=== PATIENT | male | born 2000 | race Native Hawaiian/Other Pacific Islander ===

== ENCOUNTER 2020-12-23 12:54 | Emergency (ER) | payer SELFPAY ==
[2020-12-23 13:04] VITALS: BP 130/82
--- NOTE | 2020-12-23 13:15 | Emergency Department Report ---
ED General Adult HPI - General Chief complaint: Chest Pain Stated complaint: CP Time Seen by Provider: 12/23/20 13:00 Source: patient Mode of arrival: Ambulatory Limitations: No Limitations - History of Present Illness Initial comments: Patient is a 20-year-old male presents emergency room complaints of substernal chest pain that began a month ago. He describes the pain as intermittent sharp pain. He denies any radiation of the pain. He denies any alleviating or aggravating factors. He states that he can be doing nothing and he will feel the pain. He denies any shortness of breath, pleuritic chest pain, fever, nausea, vomiting, diarrhea, diaphoresis, leg swelling, syncope. He denies any recent travel, sick contacts, recent surgery. Patient denies any past medical history. He states he is a non-smoker. No allergies to medications. He denies any family cardiac history. Severity scale (0 -10): 8 - Related Data Allergies Allergy/AdvReac Type Severity Reaction Status Date / Time No Known Allergies Allergy Unverified 12/23/20 12:59 ED Review of Systems ROS: Stated complaint: CP Other details as noted in HPI Comment: All other systems reviewed and negative ED Physical Exam - General Limitations: No Limitations General appearance: alert, in no apparent distress - Head Head exam: Present: atraumatic, normocephalic - Eye Eye exam: Present: normal appearance - ENT ENT exam: Present: mucous membranes moist - Respiratory Respiratory exam: Present: normal lung sounds bilaterally. Absent: respiratory distress, wheezes, rales, rhonchi, stridor, chest wall tenderness, accessory muscle use, decreased breath sounds, prolonged expiratory - Cardiovascular Cardiovascular Exam: Present: regular rate, normal rhythm, normal heart sounds. Absent: systolic murmur, diastolic murmur, rubs, gallop - Neurological Exam Neurological exam: Present: alert, oriented X3 - Psychiatric Psychiatric exam: Present: normal affect, normal mood - Skin Skin exam: Present: warm, dry, intact ED Course Vital Signs 12/23/20 13:00 Pulse Rate 79 Respiratory 16 Rate Blood Pressure 130/82 [Left] O2 Sat by Pulse 96 Oximetry ED Medical Decision Making - EKG Data EKG shows normal: sinus rhythm, axis, intervals, QRS complexes Rate: normal - EKG Data 12/23/20 13:17 ST elevation from normal early repolarization No STEMI - Radiology Data Radiology results: report reviewed Ordering Physician: FAISAL BROWER Date of Service: 12/23/20 Procedure(s): XR chest routine 2V Accession Number(s): [id number] cc: FAISAL BROWER Fluoro Time In Minutes: XR chest routine 2V INDICATION / CLINICAL INFORMATION: CP. COMPARISON: None available. FINDINGS: SUPPORT DEVICES: None. HEART /PULMONARY VASCULATURE: No significant abnormality. LUNGS / PLEURA: No significant pulmonary or pleural abnormality. No pneumothorax. ADDITIONAL FINDINGS: No significant additional findings. IMPRESSION: 1. No acute findings. Signer Name: Neil Stock MD Signed: 12/23/2020 1:27 PM Workstation Name: [id number] Transcribed By: ANDREY Dictated By: NEIL STOCK MD Electronically Authenticated By: NEIL STOCK MD Signed Date/Time: 12/23/201326 DD/ TD/TT: - Medical Decision Making Patient is a 20-year-old male presents emergency room complaints of substernal chest pain that began a month ago. He describes the pain as intermittent sharp pain. He denies any radiation of the pain. He denies any alleviating or aggravating factors. He states that he can be doing nothing and he will feel the pain. He denies any shortness of breath, pleuritic chest pain, fever, nausea, vomiting, diarrhea, diaphoresis, leg swelling, syncope. He denies any recent travel, sick contacts, recent surgery. Patient denies any past medical history. He states he is a non-smoker. No allergies to medications. He denies any family cardiac history. Vitals are normal. No abnormality on physical examination as documented in chart. EKG with normal early repolarization, otherwise stable. Chest x-ray with no acute process. Symptoms have been ongoing for a month. Patient will be referred to outpatient primary care and to cardiology. Advised patient May alternate Tylenol or ibuprofen as needed for discomfort. Follow-up with a primary care doctor. Return to emergency room for any new or worsening symptoms. Critical care attestation.: If time is entered above; I have spent that time in minutes in the direct care of this critically ill patient, excluding procedure time. ED Disposition Clinical Impression: Chest pain Qualifiers: Chest pain type: unspecified Qualified Code(s): R07.9 - Chest pain, unspecified Disposition: 01 HOME / SELF CARE / HOMELESS Is pt being admited?: No Does the pt Need Aspirin: No Condition: Stable Instructions: Nonspecific Chest Pain, Adult Additional Instructions: May alternate Tylenol or ibuprofen as needed for discomfort. Follow-up with a primary care doctor. Return to emergency room for any new or worsening symptoms. Referrals: VEE CROW MD [Staff Physician] - 3-5 Days [facility] [Provider Group] - 3-5 Days CARO MORRIS MD [Staff Physician] - 3-5 Days (former hand) Time of Disposition: 13:37 Print Language: AZERI
--- NOTE | 2020-12-23 13:31 | XRay Report ---
XR chest routine 2V INDICATION / CLINICAL INFORMATION: CP. COMPARISON: None available. FINDINGS: SUPPORT DEVICES: None. HEART /PULMONARY VASCULATURE: No significant abnormality. LUNGS / PLEURA: No significant pulmonary or pleural abnormality. No pneumothorax. ADDITIONAL FINDINGS: No significant additional findings. IMPRESSION: 1. No acute findings. Signer Name: Jani Stock MD Signed: 12/23/2020 1:27 PM Workstation Name: [id number]
--- NOTE | 2020-12-24 11:22 | Electrocardiograph Report ---
[facility] Test Date: 2020-12-23 Test Time: 13:06:29 Pat Name: GUEVARA LUCAS Department: Room: Gender: M Manufacturing Design Engineer: KIRT : [id number] Requested By: KRZYSZTOF SMALLWOOD Order Number: [id number] Reading MD: García Rodriguez Measurements Intervals [place] Rate: 69 P: 40 NH: 177 QRS: 35 QRSD: 81 T: 9 QT: 376 QTc: 402 Interpretive Statements Sinus rhythm ST elev, probable normal early repol pattern No previous ECG available for comparison Electronically Signed On 12-24-2020 11:21:55 EDT by García Rodriguez
== END 2020-12-23 15:09 | disposition home or self-care (01) ==
LOC: ED 12:54
DX: R07.89 Other chest pain (principal)
CPT/HCPCS: 71046; 93005; 99283